=== PATIENT | male | born 1995 | race Caucasian/White ===

== ENCOUNTER 2023-11-07 09:05 | Emergency (ER) | payer BC, SELFPAY ==
[2023-11-07 09:11] VITALS: BP 135/73; PULSE 81; RESP 16; TEMP 36.5; O2SAT 100
--- NOTE | 2023-11-07 09:22 | ED.GENADUL_ITS ---
HPI General Mode of arrival: ambulatory . Date/Time Provider Initiated Documentation: 11/07/23 09:15 . Limitations to Documentation: no limitations . History of Present Illness 28 year old M presents to the emergency department with the chief complaint of Left foot injury, described as mild, with intensity rated at 4. Quality is described as aching, and is localized to the left and lower extremity. Patient started experiencing this day(s) (1) and it has been constant. Immobilization improves symptom(s), Movement worsens symptoms . Patient notes no other symptoms.. Patient did receive the following treatments prior to arrival, none Related Data Home Medications Medication Instructions Recorded Confirmed Unknown [No Known Home Meds] 04/01/17 11/07/23 Allergies Allergy/AdvReac Type Severity Reaction Status Date / Time No Known Allergies Allergy Unverified 11/07/23 09:14 General Stated Complaint: Orthopedic KENYA: 4 Review of Systems Cardiovascular Cardiovascular: Denies syncope Musculoskeletal Musculoskeletal: Reports as per HPI, Reports arthralgias, Reports joint swelling, Denies muscle weakness, Denies numbness and Denies tingling Integumentary/Breasts Skin/Breast: Reports unusual bruising and Denies wounds Neurologic Neurologic: Denies syncope, Denies numbness, Denies tingling and Denies paresthesias Exam Const General: cooperative, no acute distress and not ill appearing Orientation: alert, awake and oriented x3 [facility] Mouth: moist mucous membranes Resp Effort & Inspection: normal respiratory effort, able to speak in complete sentences and no respiratory distress Cardio Rate: regular rate Rhythm: regular rhythm Pulses: normal peripheral pulses Skin General skin exam: no rashes or lesions noted Neuro General: patient alert, patient awake, patient oriented x3, moves all extremities and no focal motor deficits Sensory Exam: no sensory deficits noted Extrem General: normal exam except as noted Left lower extremity: foot Details: tenderness Location: of the lateral foot Location: in the mid-section and proximally; not of the base of the 5th metatarsal, ecchymosis dorsal lateral mid , vascular exam Details: dorsalis pedis pulse present, posterior tibial pulse present and normal capillary refill and motor-sensory exam Details: light-touch normal Course Vital Signs Vital signs: Vital Signs Temperature 36.5 C 11/07/23 09:11 Pulse 81 11/07/23 09:11 Respiratory Rate 16 11/07/23 09:11 Blood Pressure 135/73 11/07/23 09:11 Pulse Oximetry 100 11/07/23 09:11 Temperature 36.5 C 11/07/23 09:11 Temperature Source Temporal Artery Scan 11/07/23 09:11 Pulse 81 11/07/23 09:11 Respiratory Rate 16 11/07/23 09:11 Respiratory Effort Normal, Non-Labored 11/07/23 09:15 Blood Pressure 135/73 11/07/23 09:11 Blood Pressure Position Sitting 11/07/23 09:11 Pulse Oximetry 100 11/07/23 09:11 Oxygen Delivery Method Room Air 11/07/23 09:11 Oxygen Flow Rate 0 11/07/23 09:11 Medical Decision Making Patient presenting to the emergency department for chief complaint of left foot injury. Patient reports that he was at gymnastics gym with his daughter and stepped awkwardly on a mat and injured the lateral aspect of the left foot. Patient denies any other injury or trauma. Patient has no significant contributing past medical history. Physical exam shows significant swelling and ecchymosis to the lateral aspect of the foot. No tenderness at the base of the fifth metatarsal, ankle has no tenderness, lateral proximal and mid foot tenderness to palpation otherwise noncontributory exam. Will plan on performing radiological imaging for evaluation of potential fracture. Patient denies any need of pain medication pending results. Review of radiological imaging and radiologist interpretation shows a question of an indeterminate age navicular avulsion fracture. 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 After discussion of diagnosis and plan of care patient has no further needs, questions, or concerns and states clear understanding to return to the emergency department for any worsening symptoms. This documentation was generated using [employer] dictation system, please disregard any oddities of phrase or misspellings. Imaging Data Radiologic Study: Imaging: X-Ray Radiologist's impression: Exam(s) PROCEDURE INFORMATION: Exam: XR Left Foot Exam date and time: 11/07/2023 9:43 AM Age: 28 years old Clinical indication: Other: Lateral trauma TECHNIQUE: Imaging protocol: Radiologic exam of the left foot. Views: 3 or more views. COMPARISON: No relevant prior studies available. FINDINGS: Bones/joints: There is a small linear calcific density in the soft tissues just superficial to the navicular on the lateral view, a suspected tiny dorsal avulsion fracture, age-indeterminate. No additional fractures are identified. Alignment is anatomic. Joint spaces are maintained. Soft tissues: Unremarkable. IMPRESSION: Tiny dorsal navicular avulsion fracture in the left foot, age-indeterminate. Correlate with location of patient's symptoms. Quality:SDOH Health Related Social Needs: No Data to Display PFSH All Active Problems (Updated 11/07/23 @ 10:04 by José Hernandez NP) Avulsion fracture of navicular bone of foot (Acute) Social History Smoking/Tobacco Use Status: Never Smoking risk assessment performed?: Yes Alcohol Intake: never Drug use: Never Substance use type: does not use Do you feel safe at home: Yes Do you feel safe in your relationship?: Yes Discharge Plan Disposition Patient Disposition: Home Discharge Details Clinical Impression: Avulsion fracture of navicular bone of foot Primary Care Provider: None,None ED Provider: José Hernandez Home Meds and New Rx's Prescriptions: No Action No Known Home Meds Discharge Instructions Instructions: Foot Fracture in Adults (ED) Additional Instructions: He may perform weightbearing activities as tolerated but please wear the provided walking boot during any ambulation or activity but you may remove this at night. Please continue to take [id number] pain medication as needed and keep foot elevated and iced the extremity to help with swelling. Return to the emergency department for any new or significant worsening of s ymptoms otherwise follow-up with orthopedics and call their office tomorrow afternoon for arrangement of follow-up appointment. Referrals: [facility] [Provider Group]
--- NOTE | 2023-11-07 09:22 | DI.RAD_ITS ---
Exam(s) XR FOOT LT COMPLETE EXAM: XR FOOT LT COMPLETE CLINICAL HISTORY: lateral trauma. TECHNIQUE: 2D digital imaging was performed. Three views. COMPARISON: No exams were available for comparison FINDINGS: BONES: There is a tiny buddy of bone seen at the dorsal aspect of the navicular which could represent tiny avulsion fragment. No bony destructive lesion is seen. JOINTS: No dislocation present. SOFT TISSUE: Mild soft tissue swelling dorsal to the navicular. IMPRESSION: Question acute versus chronic tiny avulsion fracture fragment projecting dorsal to the navicular. DATA REPOSITORY: RADIATION DOSE DELIVERED:
--- NOTE | 2023-11-07 09:53 | DI.VRAD_ITS ---
PROCEDURE INFORMATION: Exam: XR Left Foot Exam date and time: 11/07/2023 9:43 AM Age: 28 years old Clinical indication: Other: Lateral trauma TECHNIQUE: Imaging protocol: Radiologic exam of the left foot. Views: 3 or more views. COMPARISON: No relevant prior studies available. FINDINGS: Bones/joints: There is a small linear calcific density in the soft tissues just superficial to the navicular on the lateral view, a suspected tiny dorsal avulsion fracture, age-indeterminate. No additional fractures are identified. Alignment is anatomic. Joint spaces are maintained. Soft tissues: Unremarkable. IMPRESSION: Tiny dorsal navicular avulsion fracture in the left foot, age-indeterminate. Correlate with location of patient's symptoms. Dictated and Authenticated by: Shelby Mello MD. Ordering:SEMAJ Kumar MD
== END 2023-11-07 10:18 | disposition home or self-care (01) ==
PROVIDERS: Emergency Provider Nurse Practitioner Family
DX: S92.255A Nondisplaced fracture of navicular [scaphoid] of left foot, initial encounter for closed fracture (principal); X50.1XXA Overexertion from prolonged static or awkward postures, initial encounter; Y93.89 Activity, other specified; Y92.39 Other specified sports and athletic area as the place of occurrence of the external cause
CPT/HCPCS: 99283; 73630